=== PATIENT | male | born 1975 ===

== ENCOUNTER 2017-05-22 20:04 | Emergency (ER) | payer OTHER ==
[2017-05-22] MEDS ORDERED: Bacitracin 500 Units/gm Oint Foilpak UD TOP ONE (21:40)
[2017-05-22] MEDS ORDERED: Bacitracin 500 Units/gm Oint Foilpak UD ONE (21:49)
--- NOTE | 2017-05-22 22:34 | C.PDOC ---
History Of Present Illness 41 year old male who presents to the ER with a complaint of back pain and right hip pain since this morning. Patient states while at work he was hit by a metal door from a trailer, patient continued to work and pain persisted. Denies weakness, numbness, bladder/bowel incontinence, dysuria, hematuria, LOC, or other injuries. Time Seen by Provider: 05/22/17 21:17 Chief Complaint (Nursing): Back Pain History Per: Patient History/Exam Limitations: no limitations Onset/Duration Of Symptoms: Hrs Current Symptoms Are (Timing): Still Present Quality Of Discomfort: Unable To Describe Previous Symptoms: None Associated Symptoms: None Recent travel outside of the [place]: No Past Medical History Reviewed: Historical Data, Nursing Documentation, Vital Signs Vital Signs: Last Vital Signs Temp 97.8 F 05/22/17 22:46 Pulse 59 L 05/22/17 22:46 Resp 18 05/22/17 22:46 BP 124/76 05/22/17 22:46 Pulse Ox 99 05/23/17 01:21 - Medical History PMH: No Chronic Diseases Surgical History: No Surg Hx Family History: States: Unknown Family Hx - Social History Hx Alcohol Use: Yes Hx Substance Use: No - Immunization History Hx Tetanus Toxoid Vaccination: Yes (3 years ago) Hx Influenza Vaccination: No Hx Pneumococcal Vaccination: No Review Of Systems Genitourinary: Negative for: Dysuria, Incontinence, Hematuria Musculoskeletal: Positive for: Back Pain, Other (Right hip pain) Neurological: Negative for: Weakness, Numbness, Other (LOC) Physical Exam - Physical Exam Appears: Well, Non-toxic, No Acute Distress Skin: Warm, Dry Head: Atraumatic, Normacephalic Eye(s): bilateral: Normal Inspection, EOMI Nose: Normal Oral Mucosa: Moist Neck: Normal ROM, Supple Chest: Symmetrical Respiratory: No Accessory Muscle Use Gastrointestinal/Abdominal: Soft, No Tenderness Back: No CVA Tenderness, No Vertebral Tenderness, Other (Superficial abrasion superior to left buttock with mildly surrounding erythema and tenderness) Extremity: Normal ROM, No Swelling, Other (Right hip tenderness) Extremity: Bilateral: Normal ROM Neurological/Psych: Oriented x3, Normal Speech, Normal Cognition, Normal Motor, Normal Sensation Gait: Steady ED Course And Treatment O2 Sat by Pulse Oximetry: 99 (Room air) Pulse Ox Interpretation: Normal - Other Rad LS Spine x-ray X-Ray: Interpreted by Me, Viewed By Me Interpretation: No acute fractures or dislocations. Right Hip x-ray X-Ray: Interpreted by Me, Viewed By Me Interpretation: No acute fractures or dislocations. Progress Note: Bacitracin applied. Right hip x-ray and LS spine x-ray ordered. Patient is declining all pain medication at this time. Patient instructed to follow up with PMD in 1-2 days and to return to ER if pain worsens. Disposition - Disposition Disposition: HOME/ ROUTINE Disposition Time: 22:33 Condition: STABLE Additional Instructions: Vaya a reilly mdico o la clnica en 2-5 moffett sin falta, para mas evaluacin. [place] los medicamentos edgar indicado. Volver a la isabella de emergencia en cualquier momento si los sntomas persisten o empeoran. Prescriptions: Bacitracin OINT 1 applic TP BID #1 tube Cephalexin [cephalexin] 500 mg PO BID #14 cap Naproxen [Naprosyn] 1 tab PO BID PRN #20 tab PRN Reason: Pain Instructions: Back Pain (ED) Forms: [employer] (Spanish), Work Excuse Print Language: TELUGU - Clinical Impression Clinical Impression: Contusion, hip, Back contusion - Scribe Statement The provider has reviewed the documentation as recorded by the Scribgerson Metzger All medical record entries made by the Scribe were at my direction and personally dictated by me. I have reviewed the chart and agree that the record accurately reflects my personal performance of the history, physical exam, medical decision making, and the department course for this patient. I have also personally directed, reviewed, and agree with the discharge instructions and disposition.
[2017-05-22 22:46] VITALS: BP 124/76; PULSE 59; RESP 18; TEMP 97.8
[2017-05-23 01:01] VITALS: O2SAT 99
--- NOTE | 2017-05-23 08:54 | RAD ---
PROCEDURE: HISTORY: trauma COMPARISON: None TECHNIQUE: AP view of the pelvis and applicable frog leg views obtained. 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 IMPRESSION: Right acetabular protrusio-etiology unknown. No fracture. No dislocation
--- NOTE | 2017-05-23 08:55 | RAD ---
PROCEDURE: Radiographs of the Lumbar Spine. HISTORY: trauma COMPARISON: No prior. FINDINGS: BONES: Normal alignment. No listhesis. No fracture. DISC SPACES: Unremarkable. OTHER FINDINGS: Right acetabular protrusio -etiology unknown IMPRESSION: No lumbosacral fracture or subluxation here Right acetabular protrusio -etiology unknown
== END 2017-05-22 22:54 | disposition home or self-care (01) ==
LOC: C.ER 20:04
DX: S30.0XXA Contusion of lower back and pelvis, initial encounter (principal); S70.01XA Contusion of right hip, initial encounter; W22.8XXA Striking against or struck by other objects, initial encounter; Y92.89 Other specified places as the place of occurrence of the external cause; Y99.0 Civilian activity done for income or pay